=== PATIENT | female | born 2000 | race Caucasian/White ===

== ENCOUNTER → 2020-06-26 | Outpatient (CLI) | payer OTHER | LOC: HEART 5 14:36 | DX: R00.0 Tachycardia, unspecified (principal) ==

== ENCOUNTER → 2020-10-16 | Outpatient (CLI) | payer OTHER ==
[2020-10-16 13:22] LABS: ASTROVIRUS Not Detected (Negative); CAMPYLOBACTER Not Detected (Negative); CLOSTRIDIUM DIFFICILE TOX A/B Not Detected (Negative); CRYPTOSPORIDIUM Not Detected (Negative); E.COLI 0157 Not Detected (Negative); ENTAMOEBA HISTOLYTICA Not Detected (Negative); ENTEROAGGREGATIVE E.COLI (EAEC Not Detected (Negative); ENTEROPATHOGENIC E.COLI (EPEC) Not Detected (Negative); ENTEROTOXIGENIC E.COLI (ETEC) Not Detected (Negative); GIARDIA LAMBLIA Not Detected (Negative); NOROVIRUS GI/GII Not Detected (Negative); PLESIOMONAS SHIGELLOIDES Not Detected (Negative); ROTOVIRUS A Not Detected (Negative); SALMONELLA Not Detected (Negative); SAPOVIRUS Not Detected (Negative); SHIG/ENTEROINVAS.ECOLI (EIEC) Not Detected (Negative); SHIGA-LIK TOX.PRO.E.COLI (STEC Not Detected (Negative); VIBRIO Not Detected (Negative); VIBRIO CHOLERAE Not Detected (Negative); YERSINIA ENTEROCOLITICA Not Detected (Negative)
[2020-10-16 15:01] LABS: ADENOVIRUS F 40/41 DETECTED (Negative)
== END ==
LOC: LBRF 11:38
PROVIDERS: Physician Assistant
DX: R11.0 Nausea (principal); R19.7 Diarrhea, unspecified
CPT/HCPCS: 87507

== ENCOUNTER 2021-06-10 20:54 | Emergency (ER) | payer OTHER ==
[2021-06-10 21:37] LABS: HEMOGLOBIN 12.1 gm/dl (12.3-15.3); RED BLOOD COUNT 4.75 M/UL (4.00-5.10); WHITE BLOOD COUNT 11.9 K/UL (4.5-11.0)
[2021-06-10 21:56] LABS: BUN/CREATININE RATIO 11 (0-10)
[2021-06-10] MEDS ORDERED: BACTRIM DS TAB1 EACH PO (22:17)
[2021-06-10] MEDS ORDERED: IBUPROFEN600 MG PO (22:17)
[2021-06-10] MEDS ORDERED: BACTROBAN OINT22 GM EXT (22:17)
== END 2021-06-10 22:40 | disposition home or self-care (01) ==
LOC: ER1 20:54
PROVIDERS: Physician Assistant Medical
DX: L05.01 Pilonidal cyst with abscess (principal); Z88.0 Allergy status to penicillin
CPT/HCPCS: 10080; 80053; 85025; 87070; 87205; 96374; 96375; 99283; J2270; J2405

== ENCOUNTER → 2021-06-13 | Outpatient (CLI) | payer OTHER ==
[~2021-06-13] MED LIST: BACTRIM DS TAB1 EACH PO; BACTROBAN OINT22 GM EXT; IBUPROFEN600 MG PO
== END ==
LOC: EXRD 07:53
DX: N93.9 Abnormal uterine and vaginal bleeding, unspecified (principal)
CPT/HCPCS: 76856

== ENCOUNTER → 2021-07-05 | Day surgery (SDC) | payer OTHER ==
[~2021-07-05] MED LIST changes: +COLACE100 MG PO; +CRANBERRY500 M3 PO; +DICYCLOMINE HCL10 MG PO; +HYDROCODON-ACE1 EAC2 PO; +LEVONOR-ETH ES1 EAC1 PO; +METOPROLOL SUCC25 MG PO; +ZYRTEC10 MG PO
== END | disposition home or self-care (01) ==
LOC: OR 07:54
DX: L05.91 Pilonidal cyst without abscess (principal); E66.9 Obesity, unspecified; Z68.41 Body mass index [BMI] 40.0-44.9, adult; Z88.0 Allergy status to penicillin; Z79.899 Other long term (current) drug therapy
CPT/HCPCS: 84703; J1100; J1170; J1885; J2001; J2250; J2405; J2704; J2710; J3010

== ENCOUNTER → 2021-11-20 | Day surgery (SDC) | payer OTHER ==
[~2021-11-20] MED LIST changes: +HYDROCODON-ACE1 EAC4 PO
== END | disposition home or self-care (01) ==
LOC: OR 07:08
DX: L05.91 Pilonidal cyst without abscess (principal); E66.9 Obesity, unspecified; F41.9 Anxiety disorder, unspecified; Z68.38 Body mass index [BMI] 38.0-38.9, adult; Z88.0 Allergy status to penicillin; Z79.899 Other long term (current) drug therapy
CPT/HCPCS: 84703; J1100; J1170; J1885; J2001; J2250; J2405; J2704; J3010